=== PATIENT | female | born 1935 | race Caucasian/White ===

== ENCOUNTER 2019-07-13 18:04 | Emergency (ER) | payer OTHER ==
[~2019-07-13] VITALS: Ht 162.6 cm; Wt 60.8 kg
--- NOTE | 2019-07-13 18:17 | NUR ---
dr dao at bedside for eval.
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
--- NOTE | 2019-07-13 18:25 | NUR ---
iv line started blood drawn and sent to lab.
[2019-07-13] MEDS ORDERED: KETOROLAC TROMETHAMINE INJ 30 MG/ML VIAL IV ONE (18:30)
[2019-07-13] MEDS ORDERED: IV NS 0.9% 500 ML BAG IV ONE (18:30)
[2019-07-13 18:33] LABS: EOSINOPHILS % (AUTO) 2.1 % (0.0-6.0); HEMATOCRIT 39 % (33-45); LYMPHOCYTES # (AUTO) 1.6 /CMM (0.8-4.8); LYMPHOCYTES % (AUTO) 33.8 % (20.0-44.0); MEAN CORPUSCULAR HGB CONC 34 g/dl (31.0-36.0); MEAN CORPUSCULAR VOLUME 98 fL (82-100); MONOCYTES # (AUTO) 0.7 /CMM (0.1-1.30); NEUTROPHILS # (AUTO) 2.3 /CMM (1.8-8.9); NEUTROPHILS % (AUTO) 49.1 % (43.0-81.0); PLATELET COUNT (AUTO) 230 /CMM (150-450); RED BLOOD CELL COUNT(AUTO) 3.92 MIL/uL (4.0-5.2); WHITE BLOOD COUNT (AUTO) 4.7 K/uL (4.3-11.0)
[2019-07-13] MEDS ORDERED: ATOR10TA PO (18:34)
[2019-07-13] MEDS ORDERED: LISI10TA5 PO (18:34)
[2019-07-13] MEDS ORDERED: TRAV5DRO EACHEYE (18:34)
[2019-07-13] MEDS ORDERED: LEVO50TA8 PO (18:34)
[2019-07-13] MEDS ORDERED: DORZ10DR11 EACHEYE (18:34)
[2019-07-13] MEDS ORDERED: HYDR12.55 PO (18:34)
[2019-07-13] MEDS ORDERED: KETOROLAC TROMETHAMINE 15 MG/ML VIAL ONE (18:38)
--- NOTE | 2019-07-13 18:41 | NUR ---
radiology at bedside for hip/pelvis and chest xray.
[2019-07-13 18:44] LABS: CREATININE 1.1 mg/dL (0.6-1.3); POTASSIUM 3.6 mmol/L (3.5-5.1)
--- NOTE | 2019-07-13 19:27 | NUR ---
R THIGH PURPLISH BLUISH DISCOLO
--- NOTE | 2019-07-13 20:06 | NUR ---
ROLY SHEPARD TALKING TO KATE (CREATIVE ART DIRECTOR) REGARDING PT.
--- NOTE | 2019-07-13 21:03 | NUR ---
faxed ct report to Shereen MAIER
[2019-07-13] MEDS ORDERED: MORPHINE SULFATE INJ 4 MG/ML DISP.SYRIN ONE (21:29)
[2019-07-13] MEDS ORDERED: ENALAPRILAT INJ (1.25 MG/ML) 1.25 MG/ML VIAL IV ONE (21:29)
[2019-07-13] MEDS ORDERED: ONDANSETRON HCL/PF 4 MG/2 ML VIAL ONE (21:29)
[2019-07-13] MEDS ORDERED: MORPHINE SULFATE INJ 2 MG/ML DISP.SYRIN IV ONE (21:30)
[2019-07-13] MEDS ORDERED: ENALAPRILAT INJ (1.25 MG/ML) 1.25 MG/ML VIAL IV PRN (21:30)
[2019-07-13] MEDS ORDERED: ONDANSETRON HCL/PF 4 MG/2 ML VIAL IVP ONE (21:30)
--- NOTE | 2019-07-13 21:46 | NUR ---
ROLY SHEPARD SPOKE TO DR. DAVIES REGARDING PT TRANSFER.
--- NOTE | 2019-07-13 23:59 | NUR ---
KYUNG NELSON FROM [facility] WITH TRANSFER INFO RM [phone] --STOP BY ADMITTING DEPT FIRST REPORT TO [phone] CALL FOR AMBULANCE
--- NOTE | 2019-07-14 00:05 | NUR ---
AMBULANCE ETA 45MIN-1HR APPROX 1AM [facility]
--- NOTE | 2019-07-14 00:06 | NUR ---
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
--- NOTE | 2019-07-14 01:03 | NUR ---
REPORT GIVEN TO ARNOLDO RAINES AT [facility] FOR [facility]
[2019-07-14] MEDS ORDERED: hydrALAZINE HCL IV 20 MG VIAL ONE (01:43)
[2019-07-14] MEDS ORDERED: hydrALAZINE HCL IV 20 MG VIAL IV ONE (02:00)
[2019-07-14 02:01] VITALS: BP 159/61
--- NOTE | 2019-07-14 02:30 | NUR ---
REPORT GIVEN TO TRANSPORT TEAM FOR [facility] AND TRANSFERRING RESPONSIBILITIES.
== END 2019-07-14 02:32 | disposition short-term general hospital (02) ==
LOC: ER 18:12
DX: S72.141A Displaced intertrochanteric fracture of right femur, initial encounter for closed fracture (principal); Z60.2 Problems related to living alone; Z79.899 Other long term (current) drug therapy; W18.39XA Other fall on same level, initial encounter; Y93.89 Activity, other specified; Y92.89 Other specified places as the place of occurrence of the external cause; Y99.8 Other external cause status
CPT/HCPCS: 36415; 71045; 72192; 73502; 80048; 85025; 85730; 96374; 96375 ×2; 99285; J0360; J1885; J2270; J2405; J3490; J7040